=== PATIENT | male | born 1985 | race Caucasian/White ===

== ENCOUNTER 2018-04-22 10:59 | Emergency (ER) | payer OTHER ==
[2018-04-22 11:27] VITALS: BP 134/86; PULSE 71; TEMP 98.3; O2SAT 99
--- NOTE | 2018-04-22 11:59 | ED PDOC ---
HPI: CCC, URI, Sore Throat Time Seen by Provider: 04/22/18 11:52 Chief Complaint (Nursing): ENT Problem History Per: Patient Onset/Duration Of Symptoms: Days (4) Current Symptoms Are (Timing): Still Present Location Of Pain: Ear(s) Associated Symptoms: denies: Fever Ear Symptoms: Left: Ear Pain Severity: Moderate Pain Scale Rating Of: 3 Additional Complaint(s): Left ear pain x 4 days. Tx'ed with PO and otic antibiotics with no improvement. Decreased hearing left side no fever. No drainage Past Medical History Vital Signs: Last Vital Signs Temp 98.3 F 04/22/18 11:26 Pulse 71 04/22/18 11:26 Resp BP 134/86 04/22/18 11:26 Pulse Ox 99 04/22/18 11:26 - Medical History PMH: Gall Bladder Disease Denies: HIV, Chronic Kidney Disease - Surgical History Surgical History: Cholecystectomy - Family History Family History: States: Unknown Family Hx - Home Medications Home Medications: Ambulatory Orders Medication Instructions Recorded Acetaminophen [Tylenol 325mg tab] 650 mg PO Q6H PRN 07/28/16 Ibuprofen [Advil] 400 mg PO Q8H PRN 07/28/16 Dicyclomine [Dicyclomine HCl] 10 mg PO BID #15 cap 08/11/16 Ciprofloxacin/Dexamethasone 1 drop TOP TID #1 bottle 04/22/18 [Ciprodex 0.3%-0.1% 7.5 Ml] Naproxen [Naprosyn] 500 mg PO Q12H #20 tab 04/22/18 - Allergies Allergies/Adverse Reactions: Allergies Allergy/AdvReac Type Severity Reaction Status Date / Time No Known Allergies Allergy Verified 04/22/18 11:31 Review of Systems Constitutional: Negative for: Fever ENT: Positive for: Ear Pain Physical Exam - Physical Exam Appears: Positive for: Non-toxic, No Acute Distress Skin: Positive for: Normal Color ENT: Positive for: Other (Left canal swollen and erythemetous. TM not visible). Negative for: Pharyngeal Erythema Neck: Positive for: Normal, Painless ROM Respiratory: Positive for: CNT, Normal Breath Sounds - ECG O2 Sat by Pulse Oximetry: 99 Disposition - Clinical Impression Clinical Impression: Otitis externa - Patient ED Disposition Is Patient to be Admitted: No Counseled Patient/Family Regarding: Diagnosis, Need For Followup, Rx Given - Disposition Referrals: Pablo Whitney MD [Staff Provider] - Disposition: Routine/Home Disposition Time: 11:59 Condition: FAIR Prescriptions: Ciprofloxacin/Dexamethasone [Ciprodex 0.3%-0.1% 7.5 Ml] 1 drop TOP TID #1 bottle Naproxen [Naprosyn] 500 mg PO Q12H #20 tab Instructions: Outer Ear Infection Print Language: BOLIVIAN
[2018-04-22] MEDS ORDERED: Naproxen 500 MG TAB PO STA (12:02)
[2018-04-22] MEDS ORDERED: Naproxen 500 MG TAB PO ONE (12:14)
[2018-04-22 12:45] VITALS: RESP 16
== END 2018-04-22 12:45 | disposition home or self-care (01) ==
LOC: H.ER 10:59
DX: H60.92 Unspecified otitis externa, left ear (principal)